=== PATIENT | male | born 1950 | race Caucasian/White ===

== ENCOUNTER 2023-02-21 15:20 | Emergency (ER) | payer MEDICARE, OTHER ==
[2023-02-21] MEDS ORDERED: TETANUS/DIPHTHERIA/PERTUSSIS 0.5 ML SYRINGE IM ONE (15:43)
--- NOTE | 2023-02-21 16:18 | ED Physician Documentation ---
History of Present Illness - Stated complaint Stated Complaint: FALL, FACE INJ - Chief complaint Chief Complaint: Trauma Hd/Nk - History obtained from History obtained from: Patient, Family - History of Present Illness Timing: Today Pain level max: 9 Pain level now: 9 - Additonal information Additional information: Patient is a 72-year-old male who presents to the emergency department after being on a ladder today and falling approximately 9 feet onto hard dirt, face first. No loss of consciousness. No vomiting. Patient is not on anticoagulants. No neck or back pain. No numbness or tingling. Denies any other injuries. Ambulated into the emergency department. Unknown last tetanus. Review of Systems Constitutional: denies: Fever, Chills Eyes: denies: Loss of vision, Decreased vision, Photophobia Ears: denies: Ear pain Nose: reports: Epistaxis. denies: Rhinorrhea / runny nose, Congestion Throat: denies: Sore throat Cardiac: denies: Chest pain / pressure, Palpitations Respiratory: denies: Dyspnea, Cough GI: denies: Abdominal Pain, Nausea, Vomiting, Diarrhea Skin: denies: Rash Musculoskeletal: denies: Neck pain, Back pain Neurologic: denies: Headache PD PAST MEDICAL HISTORY - Past Medical History Cardiovascular: High cholesterol : Other - Past Surgical History Past Surgical History: No - Present Medications Home Medications: Ambulatory Orders Medication Instructions Recorded Confirmed Amox/Clav 875/125 [Augmentin] 1 tab PO Q12H #20 tablet 02/21/23 Irbesartan [Avapro] 75 mg PO DAILY 02/21/23 02/21/23 Oxycodone HCl/Acetaminophen 1 - 2 each PO Q6H PRN #20 tablet 02/21/23 [Percocet 5-325 mg Tablet] MDD 6 tabs Rosuvastatin Calcium 20 mg PO DAILY 02/21/23 02/21/23 Tamsulosin [Flomax] 0.4 mg PO DAILY 02/21/23 02/21/23 - Allergies Allergies/Adverse Reactions: Allergies Allergy/AdvReac Type Severity Reaction Status Date / Time No Known Drug Allergies Allergy Verified 02/21/23 15:39 - Social History Does the pt smoke?: No Smoking Status: Never smoker ETOH Use: Wine Does the pt have substance abuse?: No - Immunizations Immunizations are current?: No Immunizations: TDAP >10years/unknown PD ED PE NORMAL - Vitals Vital signs reviewed: Yes - General General: Alert and oriented X 3, No acute distress - HEENT HEENT: Atraumatic, PERRL, EOMI, Ears normal, Moist mucous membranes, Pharynx benign, Other (diffusely TTP over the face. EOMI. 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, No motor deficit, No sensory deficit, Normal speech Eye Opening: Spontaneous Motor: Obeys Commands Verbal: Oriented GCS Score: 15 - Psych Psych: Normal mood, Normal affect Results - Vitals Vitals: Vital Signs - 24 hr 02/21/23 02/21/23 15:30 17:39 Temperature 36.7 C Heart Rate 68 68 Respiratory 21 13 Rate Blood Pressure 157/78 H 155/74 H O2 Saturation 100 97 Oxygen O2 Source Room air - Labs Labs: Laboratory Tests 02/21/23 02/21/23 15:55 15:55 WBC 9.9 RBC 4.46 L Hgb 14.3 Hct 42.6 MCV 95.5 H MCH 32.1 H MCHC 33.6 RDW 13.2 Plt Count 214 MPV 10.8 Neut # (Auto) 8.1 H Lymph # (Auto) 1.2 L Isabella # (Auto) 0.5 Eos # (Auto) 0.1 Baso # (Auto) 0.0 Absolute Nucleated RBC 0.00 Nucleated RBC % 0.0 Sodium 137 Potassium 3.6 Chloride 104 Carbon Dioxide 28 Anion Gap 5.0 L BUN 19 Creatinine 1.1 Estimated GFR (MDRD) 66 L Glucose 148 H Calcium 9.7 Total Bilirubin 0.6 AST 24 ALT 20 Alkaline Phosphatase 54 Total Protein 7.0 Albumin 4.5 Globulin 2.5 Albumin/Globulin Ratio 1.8 Lipase 40 - Rads (name of study) head CT Relevant Findings:: Final report received, See rad report maxillofacial CT Relevant Findings:: Final report received, See rad report cervical spine CT Relevant Findings:: Final report received, See rad report PD Medical Decision Making - ED course Complexity details: reviewed results, re-evaluated patient, considered differential, d/w patient, d/w family, d/w regional engagement consultant ([facility] and neurosurgery) ED course: A call was placed to [facility] at 1630 for transfer. They are reviewing the images and will call us back. The patient was started on Ancef, IV fluids, pain medication given. Tdap given. I discussed the case with BEATRIZ Dawson after she reviewed the images. She states that there is no indication for transfer at this time and would recommend consulting neurosurgery for the intracranial gas. She recommends sinus precautions and Augmentin for 7 to 10 days. Recommends follow-up in clinic to discuss surgery. I then spoke with Dr. Voss, neurosurgery at [facility] who also reviewed the images, she states that if there is no evidence of CSF leak that the patient does not need observation or admission. Recommends follow-up with [facility] as an outpatient for surgical fixation. The patient was sat up in the emergency department, head tilted forward and left for about 15 minutes, there was no drainage from the nose. He does not have any metallic taste in his mouth. GCS 15. Pain well controlled, I recontacted [facility] and discussed with Dr. Centeno, neurosurgery, updated regarding the lack of CSF leak. She concurs that there is no indication for neurochecks, observation or transfer at this time. The patient is placed on Augmentin, [facility] clinic will call the patient within 1 to 2 days for an appointment. The patient will also be given the FS clinic number. Strict return precautions are given. Patient is ambulating without difficulty in the emergency department. Patient and family counseled regarding signs and symptoms for which I believe and urgent re- evaluation would be necessary. Patient with good understanding of and agreement to plan and is comfortable going home at this time This document was made in part using voice recognition software. While efforts are made to proofread this document, sound alike and grammatical errors may occur. Caulk C-spine CT IMPRESSION: No acute fracture or traumatic listhesis of the cervical spine. HEAD CT: IMPRESSION: 1.Intracranial gas over the left frontal convexity secondary to left frontal sinus fracture. 2.No acute intracranial hemorrhage, large territorial infarct or mass effect. 3.Please refer to same day CT maxillofacial with regards to facial fractures. PROCEDURE: MAXILLOFACIAL WO INDICATIONS: fall, head/neck/face pain TECHNIQUE: Noncontrast 1.5 mm thick axial images acquired from the mandible through the frontal sinuses, with coronal and sagittal reformatting. For radiation dose reduction, the following was used: automated exposure control, adjustment of mA and/or kV according to patient size. COMPARISON: None. FINDINGS: Image quality: Excellent. Bones and teeth: Comminuted and displaced fractures of the bilateral orbital roof and superior orbital rim extending into the frontal sinuses. Comminuted fractures of the lamina papyracea bilaterally. Mildly displaced left orbital floor fracture extending to the rim. Fracture of the right lateral orbital wall extending to the orbital rim. Comminuted fractures of the anterior, lateral and medial steve of the left maxillary sinus. Comminuted fracture of the medial wall of the right maxillary sinus. Fractures of the medial and lateral pterygoid plates bilaterally. Possible nondisplaced fracture of the right zygomatic arch. Mild this was fractures of the nasal bones bilaterally. Comminuted and displaced fracture of the nasal septum. Minimal ascites fracture through the hard palate extending on the right and possibly extending into the left hard palate. Fractures through the anterior and posterior steve of the frontal sinuses bilaterally with displacement, greater on the left with resultant intracranial pneumocephalus. Sinuses: Blood is seen throughout the paranasal sinuses. Mastoid air cells are aerated. Soft tissues: Mild soft tissue edema throughout the face.. No enlarged lymph nodes. Vascular: Visualized vascular structures appear normal in the absence of contrast. Bony vascular foramina and canals are intact. IMPRESSION: 1.Extensive facial fractures as described above. Findings are consistent with a LeFort type I and II on the left and possibly a LeFort type III on the right. 2.Comminuted fractures of the anterior and posterior steve of the frontal sinuses bilaterally, greater on the left resulting in intracranial gas. Departure - Departure Disposition: 01 Home, Self Care Clinical Impression: Traumatic pneumocephalus Open extensive facial fractures Qualifiers: Encounter type: initial encounter Qualified Code(s): S02.92XB - Unspecified fracture of facial bones, initial encounter for open fracture Condition: Stable Instructions: Fx Facial Follow-Up: Nikolas Sue MD [Primary Care Provider] - [facility] [Provider Group] Prescriptions: Amox/Clav 875/125 [Augmentin] 1 tab PO Q12H #20 tablet Oxycodone HCl/Acetaminophen [Percocet 5-325 mg Tablet] 1 - 2 each PO Q6H PRN #20 tablet MDD 6 tabs PRN Reason: pain Comments: Your prescriptions were sent to [facility] in [place]. Please take all antibiotics until gone. I spoke with Dr. Dover from oral maxillofacial surgery today at [facility]. She reviewed your CT images and the clinic should call you in the next 1 to 2 days for a follow-up as your fractures will require surgery. If you do not hear from the clinic in the next 1 to 2 days, their phone number is [phone]. I also spoke with Dr. Centeno and Dr. Voss from the neurosurgical service at [facility]. You are not to place anything in your nose or blow your nose until cleared by oral maxillofacial surgery. If you notice a metallic taste in your mouth, any clear drainage from your nose, worsening headaches, vision changes or any other new or worrisome symptoms, you need to go to your closest emergency department. No heavy lifting, bending over or straining until cleared by OMFS. Do not blow your nose or sneeze forcefully. If you must sneeze, your mouth should be open if possible. It is okay to gently wipe your nose. You will also need to be on a mostly liquid diet, you can have soft foods but nothing that needs to be chewed. I am prescribing a short course of narcotic pain medication for you. These are potentially dangerous and addictive medications that should be used carefully. These medications may constipate you. Take an [id number] stool softener (docusate) twice daily with plenty of water while taking these medications. If you go 24 hours without a bowel movement, take [id number] miralax, per package instructions. Do not drink or drive while taking these medications. If you received narcotic or sedating medications while in the emergency department, do not drive for 24 hours. Store this medication in a safe, secure place and out of reach of children. It is a violation of federal law to give or sell this medication to another person or to use in a manner other than prescribed. The ED will not refill narcotic prescriptions, including prescriptions lost or stolen. To dispose of unwanted medications: 1. [facility] at [address] in [place] has a medication drop box. They accept prescription medications (in pill form) Sunday through Sunday 9:00 a.m. to 5:00 p.m. 2. [facility] accepts prescription medications (in pill form only) for disposal year round. Call for more information. 3. Contact the [facility] for the next [facility] sponsored prescription drug collection event. , [phone], or [phone]; Forms: PCP List Discharge Date/Time: 02/21/23 19:01
[2023-02-21 16:22] LABS: BASOPHILS % (AUTO) 0.4 %; EOSINOPHILS # (AUTO) 0.1 10^3/uL (0.0-0.7); EOSINOPHILS % (AUTO) 0.7 %; HCT - HEMATOCRIT 42.6 % (42.0-52.0); HGB - HEMOGLOBIN 14.3 g/dL (14.0-18.0); LYMPHOCYTES # (AUTO) 1.2 10^3/uL (1.5-3.5); LYMPHOCYTES % (AUTO) 11.6 %; MEAN CORPUSCULAR HEMOGLOBIN 32.1 pg (27.0-31.0); MEAN CORPUSCULAR HGB CONC 33.6 g/dL (32.0-36.0); MEAN CORPUSCULAR VOLUME 95.5 fL (80.0-94.0); MEAN PLATELET VOLUME 10.8 fL (7.4-11.4); MONOCYTES # (AUTO) 0.5 10^3/uL (0.0-1.0); MONOCYTES % (AUTO) 4.6 %; NEUTROPHILS # (AUTO) 8.1 10^3/uL (1.5-6.6); NEUTROPHILS % (AUTO) 82.4 %; PLT - PLATELET COUNT 214 10^3/uL (130-450); RED BLOOD COUNT 4.46 10^6/uL (4.70-6.10); RED CELL DISTRIBUTION WIDTH 13.2 % (12.0-15.0); WHITE BLOOD COUNT 9.9 x10^3/uL (4.8-10.8)
[2023-02-21] MEDS ORDERED: HYDROmorphone 1 MG/ML CARPUJECT IVP STA ×2 (16:30→18:01)
[2023-02-21] MEDS ORDERED: SODIUM CHLORIDE 0.9% 1,000 ML IV STA (16:30)
[2023-02-21 16:31] LABS: ALBUMIN 4.5 g/dL (3.2-5.5); ALBUMIN/GLOBULIN RATIO 1.8 (1.0-2.2); BILIRUBIN,TOTAL 0.6 mg/dL (0.2-1.0); CALCIUM 9.7 mg/dL (8.5-10.3); CREATININE 1.1 mg/dL (0.6-1.3); POTASSIUM 3.6 mmol/L (3.5-4.5)
[2023-02-21] MEDS ORDERED: ceFAZolin 1 GM in SODIUM CHLORIDE 0.9% MINIBAG 100 ML IV STA (16:36)
--- NOTE | 2023-02-21 16:48 | CT Report ---
PROCEDURE: CERVICAL SPINE WO INDICATIONS: fall, head/neck/face pain TECHNIQUE: Noncontrast 3 mm thick sections acquired from the skull base to the T4 level. Sagittal and coronal r eformats were then constructed. For radiation dose reduction, the following was used: automated exp osure control, adjustment of mA and/or kV according to patient size. COMPARISON: None. FINDINGS: Image quality: Excellent. Bones: No fractures or dislocations. Visualized superior ribs are intact. Multilevel degenerative changes of the cervical spine with facet and uncovertebral arthropathy, disc height loss, endplate de generative changes and spurring. This is most pronounced at C5-C6 and C6-C7. Soft tissues: Prevertebral soft tissues are normal in thickness. No paravertebral hematomas. No ap ical pneumothoraces. IMPRESSION: No acute fracture or traumatic listhesis of the cervical spine. Reviewed by: Elliot Jessica MD on 02/21/2023 4:46 PM PDT Approved by: Elliot Jessica MD on 02/21/2023 4:46 PM PDT Station ID: [id number]
--- NOTE | 2023-02-21 16:50 | CT Report ---
PROCEDURE: HEAD WO INDICATIONS: fall, head/neck/face pain TECHNIQUE: Noncontrast 4.5 mm thick angled axial sections acquired from the foramen magnum to the vertex. For r adiation dose reduction, the following was used: automated exposure control, adjustment of mA and/or kV according to patient size. COMPARISON: None. FINDINGS: Image quality: Excellent. CSF spaces: Basal cisterns are patent. No extra-axial fluid collections. Ventricles are normal in size and shape. Left frontal pneumocephalus secondary to frontal sinus fracture. Brain: No midline shift. No intracranial masses or hemorrhage. Fuller-white matter interface is norm al. Atherosclerotic vascular calcifications. Age-related global volume loss. Skull and face: Calvarium and visualized facial bones are intact, without suspicious lesions. Sinuses: Fracture through the inner and outer tables of the left frontal sinus with intracranial exte nsion of gas. There is refer to same day CT maxillofacial with regards to facial fractures. IMPRESSION: 1.Intracranial gas over the left frontal convexity secondary to left frontal sinus fracture. 2.No acute intracranial hemorrhage, large territorial infarct or mass effect. 3.Please refer to same day CT maxillofacial with regards to facial fractures. Reviewed by: Elliot Jessica MD on 02/21/2023 4:49 PM PDT Approved by: Elliot Jessica MD on 02/21/2023 4:49 PM PDT Station ID: [id number]
--- NOTE | 2023-02-21 17:05 | CT Report ---
PROCEDURE: MAXILLOFACIAL WO INDICATIONS: fall, head/neck/face pain TECHNIQUE: Noncontrast 1.5 mm thick axial images acquired from the mandible through the frontal sinuses, with co pawel and sagittal reformatting. For radiation dose reduction, the following was used: automated ex posure control, adjustment of mA and/or kV according to patient size. COMPARISON: None. FINDINGS: Image quality: Excellent. Bones and teeth: Comminuted and displaced fractures of the bilateral orbital roof and superior orbit al rim extending into the frontal sinuses. Comminuted fractures of the lamina papyracea bilaterally. Mildly displaced left orbital floor fracture extending to the rim. Fracture of the right lateral orbi walter wall extending to the orbital rim. Comminuted fractures of the anterior, lateral and medial steve of the left maxillary sinus. Comminute d fracture of the medial wall of the right maxillary sinus. Fractures of the medial and lateral pterygoid plates bilaterally. Possible nondisplaced fracture of t he right zygomatic arch. Mild this was fractures of the nasal bones bilaterally. Comminuted and displ aced fracture of the nasal septum. Minimal ascites fracture through the hard palate extending on the right and possibly extending into the left hard palate. Fractures through the anterior and posterior steve of the frontal sinuses bilaterally with displaceme nt, greater on the left with resultant intracranial pneumocephalus. Sinuses: Blood is seen throughout the paranasal sinuses. Mastoid air cells are aerated. Soft tissues: Mild soft tissue edema throughout the face.. No enlarged lymph nodes. Vascular: Visualized vascular structures appear normal in the absence of contrast. Bony vascular fo ramina and canals are intact. IMPRESSION: 1.Extensive facial fractures as described above. Findings are consistent with a LeFort type I and II on the left and possibly a LeFort type III on the right. 2.Comminuted fractures of the anterior and posterior steve of the frontal sinuses bilaterally, greate r on the left resulting in intracranial gas. Reviewed by: Elliot Jessica MD on 02/21/2023 5:03 PM PDT Approved by: Elliot Jessica MD on 02/21/2023 5:03 PM PDT Station ID: [id number]
[2023-02-21 18:07] VITALS: BP 155/74; O2SAT 97
[2023-02-21] MEDS ORDERED: AMOX/CLAV 875 MG/125 MG TABLET PO STA (18:18)
== END 2023-02-21 19:01 | disposition home or self-care (01) ==
LOC: ED 15:20
DX: S02.122A Fracture of orbital roof, left side, initial encounter for closed fracture (principal); S02.32XA Fracture of orbital floor, left side, initial encounter for closed fracture; S02.121A Fracture of orbital roof, right side, initial encounter for closed fracture; S02.40DA Maxillary fracture, left side, initial encounter for closed fracture; S02.40CA Maxillary fracture, right side, initial encounter for closed fracture; S02.81XA Fracture of other specified skull and facial bones, right side, initial encounter for closed fracture; S02.82XA Fracture of other specified skull and facial bones, left side, initial encounter for closed fracture; S02.2XXA Fracture of nasal bones, initial encounter for closed fracture; S02.19XA Other fracture of base of skull, initial encounter for closed fracture; G93.89 Other specified disorders of brain; W11.XXXA Fall on and from ladder, initial encounter
CPT/HCPCS: 36415; 70450; 70486; 72125; 80053; 83690; 85025; 90471; 90715; 96365; 96375; 96376; 99284; A9270; J1170